=== PATIENT | female | born 1940 | race Caucasian/White ===

== ENCOUNTER 2017-01-25 18:39 | Emergency (ER) | payer MEDICARE, BC ==
[2017-01-25 20:29] LABS: Hematocrit 41 % (35-47); Hemoglobin 13.6 g/dl (12.0-16.0); Mean Corpuscular HGB Conc 33 g/dl (31-36); Mean Corpuscular Hemoglobin 28 pg (27-31); Mean Corpuscular Volume 85 fL (80-97); Mean Platelet Volume 8 um3 (7.4-10.4); Red Blood Count 4.83 10^6/ul (4.0-5.4); Red Cell Distribution Width 14 % (10.5-15); White Blood Count 9.5 10^3/ul (3.5-10.8)
[2017-01-25 20:45] LABS: Albumin 3.8 g/dL (3.2-5.2); BUN/Creatinine Ratio 15.7 (8-20); Calcium 9.2 mg/dL (8.6-10.3); EGFR African American 67.6 (>60); EGFR Non-African American 52.5 (>60); Globulin 3.4 g/dL (2-4); Potassium 3.5 mmol/L (3.5-5.0); Total Bilirubin 0.9 mg/dL (0.2-1.0); Total Protein 7.2 g/dL (6.4-8.9)
--- NOTE | 2017-01-25 21:15 | RAD ---
HISTORY: Lower extremity pain and swelling TECHNIQUE: Multiple transverse and longitudinal ultrasound images were obtained of the veins of the right lower extremity using grayscale, color Doppler, and spectral Doppler imaging with and without compression and with augmentation. FINDINGS: VEINS: The common femoral vein, deep femoral vein, femoral vein and popliteal vein are compressible throughout their course, with normal flow on color Doppler imaging and normal response to augmentation on spectral Doppler imaging. SOFT TISSUES: Grossly normal. No large popliteal fossa cyst was identified. IMPRESSION: No sonographic evidence of deep vein thrombosis.
--- NOTE | 2017-01-25 22:19 | RAD ---
INDICATION: Right knee pain x2 days. COMPARISON: None TECHNIQUE: 4 view radiograph of the right knee. FINDINGS: The visualized bones are well-corticated and properly aligned. Degenerative changes of the right knee include narrowing of the medial compartment with mild marginal osteophyte formation. There is narrowing of the patellofemoral joint. There is no radiographic evidence of joint effusion. There is no acute fracture, dislocation or other focal bony abnormality. On the AP view of the knee there isn't indurated tortuous varicose vein measuring 6 mm in diameter along the medial aspect of the thigh extending into the lower leg apparently communicating with additional indurated varicose veins. IMPRESSION: 1. Degenerative changes of the right knee as described above. 2. Radiographic findings indicate the presence of varicose veins. Please correlate to signs and symptoms of superficial venous insufficiency which include gravity dependent leg aching, lower leg skin discoloration and potentially venous stasis ulcers. If clinically warranted this can be further characterized with a venous reflux ultrasound.
[2017-01-25 22:50] VITALS: BP 159/80
--- NOTE | 2017-01-26 10:49 | ED ---
Lower Extremity - HPI Summary HPI Summary: 76 yrr old female with h/o dvt x multiple, h/o twisting knee injury while wakling up [place] several months ago comes to ER with increased R knee pain with decreased ambulation due to pain x several days. denies knee swelling, pain located psoterior knee, + recent travel/ sedentary. No injry/ trauma. similar symptoms to several montsh prior when walking up stairs felt a popping. no SOB, chest pain. - History of Current Complaint Chief Complaint: EDExtremityLower Stated Complaint: RT LEG PAIN Time Seen by Provider: 01/25/17 19:45 Hx Obtained From: Patient, Family/Mechanics Supervisor - daugther x 2 Mechanism Of Injury: Unknown Onset of Pain: Days Onset/Duration: Still Present Severity Initially: Severe Severity Currently: Severe Pain Intensity: 10 Pain Scale Used: 0-10 Numeric Timing: Lasting Days Location: Is Discrete @ - posterior r knee Character Of Pain: Sharp, Aching, Throbbing, Stiffness Associated Signs And Symptoms: Positive: Knee Pain Aggravating Factor(s): Standing, Ambulation Alleviating Factor(s): Rest, Elevation Able to Bear Weight: Yes - with pain - Allergies/Home Medications Allergies/Adverse Reactions: Allergies Allergy/AdvReac Type Severity Reaction Status Date / Time Penicillins Allergy Intermediate Hives Verified 06/15/12 19:53 Lisinopril Allergy Edema Verified 01/25/17 19:55 PMH/Surg Hx/FS Hx/Imm Hx Previously Healthy: No - h/o DVT on coumadin Endocrine/Hematology History: Reports: Hx Anticoagulant Therapy - coumadin for blood clots. Cardiovascular History: Reports: Hx Hypertension Musculoskeletal History: Reports: Hx Arthritis, Hx Osteoporosis Infectious Disease History: No Infectious Disease History: Denies: Traveled Outside the [place] in Last 30 Days - Social History Alcohol Use: None Substance Use Type: Reports: None Smoking Status (MU): Former Smoker Review of Systems Constitutional: Negative Eyes: Negative Cardiovascular: Negative Positive: Arthralgia, Myalgia, Decreased ROM, Edema Neurological: Negative Psychological: Normal All Other Systems Reviewed And Are Negative: Yes Physical Exam - Summary Physical Exam Summary: Patient with b/l leg tenderness to mild palpation diffusely thoughout b/l entire legs. Patient states this is baseline, however made physical examination very difficult as patient wincing in pain regardless of where I woud palpate for examination. Specific testing difficult due to pain with moving/ holding leg. patient points that pain is most severe lateral posterior knee, however palpation in this area is largely negative. + tenderness lateral joint line, + ryan laterally, neg medially, minimal medial joint line tenderness, no increased pain with noe/ pat stressing, no instability. + homans sign b/l, PT 1+ b/l, +1 pitting edema b/l LE. minimal joint effusion R knee. neg ACL, PCL testing, however difficult to test due to patients pain with holding leg. + pes tenderness, + IT band tenderness. sensatino intact b/l. Triage Information Reviewed: Yes Vital Signs On Initial Exam: Initial Vitals Temp Pulse Resp BP Pulse Ox 98.5 F 77 18 141/76 98 01/25/17 18:55 01/25/17 18:55 01/25/17 18:55 01/25/17 18:55 01/25/17 18:55 Vital Signs Reviewed: Yes Appearance: Positive: Well-Appearing, No Pain Distress - at rest, moderate to severe pain with examination, Well-Nourished Skin: Positive: Warm, Skin Color Reflects Adequate Perfusion Musculoskeletal: Positive: Strength/ROM Intact - grossly B/L LEs, Guerda Sign Right, Edema Left, Edema Right Neurological: Positive: Normal, Sensory/Motor Intact, Alert, Oriented to Person Place, Time Diagnostics - Vital Signs Vital Signs Temp Pulse Resp BP Pulse Ox 01/25/17 22:46 89 16 159/80 01/25/17 19:49 99.9 F 80 16 165/85 100 01/25/17 19:43 99.4 F 75 18 171/70 100 01/25/17 18:55 98.5 F 77 18 141/76 98 - Laboratory Lab Results: Lab Results 01/25/17 01/25/17 01/25/17 Range/Units 20:22 20:22 20:22 WBC 9.5 (3.5-10.8) 10^3/ul RBC 4.83 (4.0-5.4) 10^6/ul Hgb 13.6 (12.0-16.0) g/dl Hct 41 (35-47) % MCV 85 (80-97) fL MCH 28 (27-31) pg MCHC 33 (31-36) g/dl RDW 14 (10.5-15) % Plt Count 249 (150-450) 10^3/ul MPV 8 (7.4-10.4) um3 Neut % (Auto) 70.0 (38-83) % Lymph % (Auto) 17.9 L (25-47) % Schuyler % (Auto) 9.8 H (1-9) % Eos % (Auto) 1.5 (0-6) % Baso % (Auto) 0.8 (0-2) % Absolute Neuts (auto) 6.6 (1.5-7.7) 10^3/ul Absolute Lymphs (auto) 1.7 (1.0-4.8) 10^3/ul Absolute Monos (auto) 0.9 H (0-0.8) 10^3/ul Absolute Eos (auto) 0.1 (0-0.6) 10^3/ul Absolute Basos (auto) 0.1 (0-0.2) 10^3/ul Absolute Nucleated RBC 0.01 10^3/ul Nucleated RBC % 0.1 INR (Anticoag Therapy) 1.80 H (0.89-1.11) APTT 34.1 (26.0-36.3) seconds D-Dimer, Quantitative < 200 (Less Than 230) ng/mL Sodium 135 (133-145) mmol/L Potassium 3.5 (3.5-5.0) mmol/L Chloride 101 (101-111) mmol/L Carbon Dioxide 25 (22-32) mmol/L Anion Gap 9 (2-11) mmol/L BUN 16 (6-24) mg/dL Creatinine 1.02 H (0.51-0.95) mg/dL Est GFR ( Amer) 67.6 (>60) Est GFR (Non-Af Amer) 52.5 (>60) BUN/Creatinine Ratio 15.7 (8-20) Glucose 100 (70-100) mg/dL Calcium 9.2 (8.6-10.3) mg/dL Total Bilirubin 0.90 (0.2-1.0) mg/dL AST 14 (13-39) U/L ALT 13 (7-52) U/L Alkaline Phosphatase 84 (34-104) U/L Total Protein 7.2 (6.4-8.9) g/dL Albumin 3.8 (3.2-5.2) g/dL Globulin 3.4 (2-4) g/dL Albumin/Globulin Ratio 1.1 (1-3) Result Diagrams: 01/25/17 20:22 01/25/17 20:22 Lab Statement: Any lab studies that have been ordered have been reviewed, and results considered in the medical decision making process. Lower Extremity Course/Dx - Course Course Of Treatment: doppler neg for DVT, D Dimer WNL, radiograph knee- no fracture, minimal OA. Probable meniscal tear laterally, f/u with ortho upon returning home, coumadin dosed as INR subtheraputic. Pain medicatino given. - Diagnoses Differential Diagnosis/HQI/PQRI: Positive: Cellulitis, Septic Arthritis, Sprain , Strain Provider Diagnoses: Knee injury Discharge - Discharge Plan Condition: Stable Disposition: HOME Prescriptions: oxyCODONE/Acetamin 10/325(NF) [Percocet 10/325 (NF)] 1 tab PO Q6H PRN #30 tab MDD 4 PRN Reason: Pain Patient Education Materials: Knee Pain (ED), Meniscus Tear (ED) Referrals: Non Staff,Doctor [Primary Care Provider] - Additional Instructions: - Percocet 10/325 as needed for pain - Follow up with primary physician within 5 days if no improvement - INR- full tablet tonight, 1/2 tablet 01/26, 1/2 tablet 01/27, follow up with repeat INR 01/28. - REturn to ER with increased pain, shortness of breath, fever, chills, and chest pain
== END 2017-01-25 22:50 | disposition home or self-care (01) ==
LOC: ED 18:39
DX: S89.91XA Unspecified injury of right lower leg, initial encounter (principal); X58.XXXA Exposure to other specified factors, initial encounter; Y93.89 Activity, other specified; Y92.89 Other specified places as the place of occurrence of the external cause; Z86.718 Personal history of other venous thrombosis and embolism; Z79.01 Long term (current) use of anticoagulants
CPT/HCPCS: 36415; 80053; 85025; 85379; 85610; 85730; 99282